=== PATIENT | male | born 1985 | race Caucasian/White ===

== ENCOUNTER 2016-11-18 16:03 | Emergency (ER) | END 2016-11-18 18:06 | disposition home or self-care (01) | DX: H10.9 Unspecified conjunctivitis (principal); S20.211A Contusion of right front wall of thorax, initial encounter; F17.210 Nicotine dependence, cigarettes, uncomplicated; X50.0XXA Overexertion from strenuous movement or load, initial encounter; Y92.89 Other specified places as the place of occurrence of the external cause; Z20.2 Contact with and (suspected) exposure to infections with a predominantly sexual mode of transmission | CPT/HCPCS: 71010; 87591; 96372; J0696; Z7502; Z7610 ==

== ENCOUNTER 2016-11-24 09:07 | Emergency (ER) | payer OTHER ==
[~2016-11-24] VITALS: Wt 70.0 kg
[~2016-11-24 09:07] MED LIST: IBUP-1542 PO; OFLO5DRO46 BOTH EYES
[2016-11-24] MEDS ORDERED: IBUP800T25 PO (09:52)
[2016-11-24] MEDS ORDERED: ACET500C5 PO (09:53)
--- NOTE | 2016-11-24 10:01 | ERD ---
ER Documentation Chief Complaint Date/Time DATE: 11/24/16 TIME: 09:57 Chief Complaint GENITAL SWELLING FOR 1 WK. NO DRAINAGE. GIVEN ABX NOT BETTER. HPI This is a 31-year-old male who presents the emergency department today complaining of genital swelling for the past several days. Patient was seen here 6 days ago with complaints of eye redness and concern for STI infection. States that the discharge from his penis has resolved. Denies any fevers or chills. Denies any dysuria. ROS All systems reviewed and are negative except as per history of present illness. Medications Home Meds Active Scripts Acetaminophen* (Tylophen*) 500 Mg Capsule, 1 CAP PO Q6H Y for PAIN AND OR ELEVATED TEMP, #30 CAP Prov:JAILENE RUIZ PA-C 11/24/16 Ibuprofen* (Motrin*) 800 Mg Tab, 800 MG PO Q6, #30 TAB Prov:JAILENE RUIZ PA-C 11/24/16 Ofloxacin* (Ocuflox*) 0.3%-5 Ml Ophth Drops, 1 DROP BOTH EYES QID for 7 Days, # 1 BOTTLE Prov:PASCUAL GUAN PA-C 11/18/16 Ibuprofen* (Motrin*) 600 Mg Tab, 600 MG PO Q6, #20 TAB Prov:PASCUAL GUAN PA-C 11/18/16 Allergies Allergies: Coded Allergies: No Known Allergy (Unverified , 11/18/16) PMhx/Soc History of Surgery: Yes (appendectomy) Anesthesia Reaction: No Hx Neurological Disorder: No Hx Respiratory Disorders: No Hx Cardiac Disorders: No Hx Psychiatric Problems: No Hx Miscellaneous Medical Probl: Yes Hx Alcohol Use: Yes Hx Substance Use: Yes Hx Tobacco Use: Yes Smoking Status: Never smoker Physical Exam Vitals Vital Signs Date Time Temp Pulse Resp B/P Pulse Ox O2 Delivery O2 Flow Rate FiO2 11/24/16 09:10 98.5 91 20 130/85 100 Physical Exam Const: No acute distress Head: Atraumatic Eyes: Normal Conjunctiva ENT: Normal External Ears, Nose and Mouth. Neck: Full range of motion..~ No meningismus. Resp: Clear to auscultation bilaterally Cardio: Regular rate and rhythm, no murmurs Abd: Soft, non tender, non distended. Normal bowel sounds : Testicular exam shows testicles descended bilaterally. Uncircumcised penis with foreskin retracted and swelling. No purulent drainage. Skin: No petechiae or rashes Back: No midline or flank tenderness Ext: No cyanosis, or edema Neur: Awake and alert Psych: Normal Mood and Affect Procedures/MDM Is a 31-year-old male presents to the emergency department today complaining of some swelling along his penis for the past several days. Upon review of patient 's medical records patient was seen here on November 18 was treated with medication for conjunctivitis, Motrin for some rib pain and prophylactically treated with azithromycin and ceftriaxone for presumptive STI infection. Patient had indicated today on physical exam that his drainage was gone from his penis. There was no evidence of this on physical exam however patient's genital exam showed evidence of paraphimosis. I did speak to Dr. Meza about this patient has seen and evaluated the patient. I was able to turn the patient's foreskin to its normal position with minimal force. Patient symptoms at this time is consistent with paraphimosis. Low suspicion for testicular torsion, epididymitis, orchitis. Do not feel he requires further treatment or workup at this time. He has been instructed to apply ice to the painful area. Patient was given a prescription for Tylenol Motrin for home. He is also instructed to abstain from unprotected sex. At this time the patient is stable for discharge and outpatient management. Patient should follow up with their PCP in the next 1-2 days. They may return to the emergency department sooner for any persistent or worsening of symptoms. Patient understood and agreed with the plan. Departure Diagnosis: Primary Impression: Paraphimosis Condition: Fair Patient Instructions: Paraphimosis Referrals: [facility] YOU HAVE RECEIVED A MEDICAL SCREENING EXAM AND THE RESULTS INDICATE THAT YOU DO NOT HAVE A CONDITION THAT REQUIRES URGENT TREATMENT IN THE EMERGENCY DEPARTMENT. FURTHER EVALUATION AND TREATMENT OF YOUR CONDITION CAN WAIT UNTIL YOU ARE SEEN IN YOUR DOCTORS OFFICE WITHIN THE NEXT 1-2 DAYS. IT IS YOUR RESPONSIBILITY TO MAKE AN APPOINTMENT FOR FOLOW-UP CARE. IF YOU HAVE A PRIMARY DOCTOR --you should call your primary doctor and schedule an appointment IF YOU DO NOT HAVE A PRIMARY DOCTOR YOU CAN CALL OUR PHYSICIAN REFERRAL HOTLINE AT IF YOU CAN NOT AFFORD TO SEE A PHYSICIAN YOU CAN CHOSE FROM THE FOLLOWING [facility] [address] [facility] [address] [facility] [address] [facility] [address] [facility]. [facility] [address] [facility]. [facility] [address] Additional Instructions: Call your primary care doctor TOMORROW for an appointment during the next 1-2 days.See the doctor sooner or return here if your condition worsens before your appointment time. Apply ice to swollen area Take Tylenol or Motrin for pain JAILENE RUIZ PA-C Nov 24, 2016 10:01
== END 2016-11-24 10:05 | disposition home or self-care (01) ==
LOC: FTE 09:07
DX: N47.2 Paraphimosis (principal)
CPT/HCPCS: 99283

== ENCOUNTER 2017-04-20 20:00 | Emergency (ER) | payer OTHER ==
[~2017-04-20] VITALS: Ht 172.7 cm; Wt 81.3 kg
[~2017-04-20 20:00] MED LIST changes: +ACET500C5 PO; +IBUP800T25 PO
[2017-04-20 20:36] VITALS: Ht 172.7 cm; Wt 81.3 kg
[2017-04-21] MEDS ORDERED: DICY10CA60 PO (00:10)
[2017-04-21] MEDS ORDERED: ONDA4TAB14 PO (00:10)
[2017-04-21] MEDS ORDERED: IBUP-1542 PO (00:10)
--- NOTE | 2017-04-21 00:54 | ERD ---
ER Documentation Chief Complaint Chief Complaint abd pain, n/v, diarrhea, since thursday; headache today HPI 31-year-old male presents here to emergency department for complaints of abdominal pain vomiting diarrhea that started 3 days ago. Patient's last episode of vomiting was yesterday, last episode of diarrhea was this morning. Patient's complaint of generalized abdominal pain cramping pain, 4/10 scale, accompanied with vomiting and diarrhea. Patient does not have any blood in stool or black stool. Patient does not have any blood in vomit. Patient denies any recent travel. Patient denies any family members with the same type of symptoms. Patient did not take any medications to help with symptoms. Patient denies any fever or chills. ROS All systems reviewed and are negative except as per history of present illness. Medications Home Meds Active Scripts Ondansetron (Ondansetron Odt) 4 Mg Tab.rapdis, 4 MG PO Q6H Y for NAUSEA AND/OR VOMITING, #20 TAB Prov:RUBINA CURTIS NP 04/21/17 Ibuprofen* (Motrin*) 600 Mg Tab, 600 MG PO Q6H Y for PAIN AND OR ELEVATED TEMP, #30 TAB Prov:RUBINA CURTIS NP 04/21/17 Dicyclomine Hcl* (Bentyl*) 10 Mg Capsule, 20 MG PO QID, #20 CAP Prov:RUBINA CURTIS NP 04/21/17 Acetaminophen* (Tylophen*) 500 Mg Capsule, 1 CAP PO Q6H Y for PAIN AND OR ELEVATED TEMP, #30 CAP Prov:JAILENE RUIZ PA-C 11/24/16 Ibuprofen* (Motrin*) 800 Mg Tab, 800 MG PO Q6, #30 TAB Prov:JAILENE RUIZ PA-C 11/24/16 Ofloxacin* (Ocuflox*) 0.3%-5 Ml Ophth Drops, 1 DROP BOTH EYES QID for 7 Days, # 1 BOTTLE Prov:PASCUAL GUAN PA-C 11/18/16 Ibuprofen* (Motrin*) 600 Mg Tab, 600 MG PO Q6, #20 TAB Prov:PASCUAL GUAN PA-C 11/18/16 Allergies Allergies: Coded Allergies: No Known Allergy (Unverified , 11/18/16) PMhx/Soc History of Surgery: Yes (appendectomy) Anesthesia Reaction: No Hx Neurological Disorder: No Hx Respiratory Disorders: No Hx Cardiac Disorders: No Hx Psychiatric Problems: No Hx Miscellaneous Medical Probl: Yes Hx Alcohol Use: Yes (occassional) Hx Substance Use: No Hx Tobacco Use: Yes Smoking Status: Current some day smoker FmHx Family History: No coronary disease, No diabetes, No other Physical Exam Vitals Vital Signs Date Time Temp Pulse Resp B/P Pulse Ox O2 Delivery O2 Flow Rate FiO2 04/20/17 20:36 99.2 80 20 187/91 99 Physical Exam GENERAL: The patient is well developed and appropriate for usual state of health, in no apparent distress. CHEST: Clear to auscultation bilaterally. There are no rales, wheezes or rhonchi. HEART: Regular rate and rhythm. No murmurs, clicks, rubs or gallops. No S3 or S4. ABDOMEN: Soft, nontender and nondistended. Hyperactive bowel sounds. No rebound or guarding. No gross peritonitis. No gross organomegaly or masses. No Gleason sign or McBurney point tenderness. BACK: No midline or flank tenderness. EXTREMITIES: Equal pulses bilaterally. There is no peripheral clubbing, cyanosis or edema. No focal swelling or erythema. Full range of motion. Grossly neurovascularly intact. NEURO: Alert and oriented. Cranial nerves 2-12 intact. Motor strength in all 4 extremities with 5/5 strength. Sensation grossly intact. Normal speech and gait. SKIN: There is no apparent rash or petechia. The skin is warm and dry. HEMATOLOGIC AND LYMPHATIC: There is no evidence of excessive bruising or lymphedema. No gross cervical, axillary, or inguinal lymphadenopathy. Procedures/MDM Medical Decision Making: Patient symptoms of vomiting diarrhea most likely is consistent with viral gastroenteritis. No symptoms of dehydration. Full vomiting has been controlled. There is low suspicion for abdominal emergencies at this time. Patients abdominal exam is normal at this time. Radiology exams not indicated at this time. There is low suspicion for appendicitis, cholecystitis, abdominal aortic aneurysms or peritonitis at this time. There is low suspicion for sepsis. Patient appears well and is hemodynamically stable. Disposition: Home. Condition: Stable Prescription ibuprofen Bentyl Zofran Instructions: Patient is advised to take medications as prescribed. Patient is advised to rest, increase fluid intake and do brat diet for next 1-2 days and progress as tolerated. Patient is advised that if symptoms are worse, severe abdominal pain, uncontrolled vomiting, high fever, severe flank pain, worst signs and symptoms, to return to the emergency department immediately. Otherwise, patient can follow up with primary care doctor in 5-7 days. Disclaimer: Inadvertent spelling and grammatical errors are likely due to EHR/ dictation software use and do not reflect on the overall quality of patient care. Also, please note that the electronic time recorded on this note does not necessarily reflect the actual time of the patient encounter. Departure Diagnosis: Primary Impression: Viral gastroenteritis Condition: Stable Patient Instructions: Gastroenteritis, Viral (6Y-Adult) RUBINA CURTIS NP Apr 21, 2017 00:54
== END 2017-04-21 00:29 | disposition home or self-care (01) ==
LOC: FTE 20:00
DX: A08.4 Viral intestinal infection, unspecified (principal); F17.210 Nicotine dependence, cigarettes, uncomplicated
CPT/HCPCS: 99284

== ENCOUNTER 2017-06-11 16:55 | Emergency (ER) | END 2017-06-11 22:06 | disposition home or self-care (01) ==

== ENCOUNTER 2018-10-26 12:17 | Emergency (ER) | payer OTHER ==
[~2018-10-26] VITALS: Ht 167.6 cm; Wt 76.7 kg
[~2018-10-26 12:17] MED LIST changes: +DICY10CA40 PO; +DOXY100T20 PO; -IBUP800T25 PO; +IBUP800T48 PO; +ONDA4TAB14 PO
[2018-10-26 12:45] VITALS: BP 146/87; PULSE 110; RESP 18; Ht 167.6 cm; Wt 76.7 kg
[2018-10-26] MEDS ORDERED: HYDROCODONE/APAP (5/325) TAB PO ONE (14:00)
[2018-10-26] MEDS ORDERED: IBUP800T48 PO (15:28)
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
== END 2018-10-26 15:36 | disposition home or self-care (01) ==
LOC: FTE 12:17
DX: S20.219A Contusion of unspecified front wall of thorax, initial encounter (principal); V43.52XA Car driver injured in collision with other type car in traffic accident, initial encounter; Z87.891 Personal history of nicotine dependence
CPT/HCPCS: 71046; Z7502; Z7610

== ENCOUNTER 2018-11-04 15:02 | Emergency (ER) | payer OTHER ==
[~2018-11-04] VITALS: Ht 175.3 cm; Wt 75.0 kg
[2018-11-04 15:03] VITALS: Ht 175.3 cm; Wt 75.0 kg
[2018-11-04] MEDS ORDERED: KETOROLAC 60 MG INJ IM STA (15:50)
[2018-11-04] MEDS ORDERED: DEXAMETHASONE 10 MG/ML 1 ML INJ IM ONE (16:00)
[2018-11-04] MEDS ORDERED: CYCL10TA7 PO (16:10)
[2018-11-04] MEDS ORDERED: IBUP800T48 PO (16:10)
[2018-11-04 16:43] VITALS: BP 148/79; PULSE 87; RESP 18
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
== END 2018-11-04 16:44 | disposition home or self-care (01) ==
LOC: FTE 15:02
DX: R07.89 Other chest pain (principal); M62.830 Muscle spasm of back; F17.210 Nicotine dependence, cigarettes, uncomplicated
CPT/HCPCS: 96372; J1100; J1885; Z7502